=== PATIENT | male | born 1970 | race Caucasian/White ===

== ENCOUNTER 2023-04-25 00:48 | Inpatient (IN) ==
[2023-04-25] MEDS ORDERED: ONDANSETRON INJ 2 MG/ML 2 ML VIAL IV STA (01:44)
[2023-04-25] MEDS ORDERED: HYDROmorphone INJ 1 MG/ML SYRINGE IV STA (01:44)
[2023-04-25 02:09] LABS: Basophils # (auto) 0.09 K/uL (0.00-0.20); Basophils % (auto) 0.6 %; Eosinophils # (auto) 0.18 K/uL (0.00-0.50); Eosinophils % (auto) 1.2 %; Hematocrit (blood only) 46.3 % (42.0-52.0); Hemoglobin 15.7 g/dl (14.0-18.0); Immature Granulocytes # (auto) 0.07 K/uL (0.01-0.20); Immature Granulocytes % (auto) 0.5 %; Lymphocytes # (auto) 1.72 K/uL (1.20-3.40); Lymphocytes % (auto) 11.4 %; Mean Corpuscular Hemoglobin 29.7 pg (25.0-34.0); Mean Corpuscular Hgb Conc 33.9 g/dL (32.0-36.0); Mean Corpuscular Volume 87.7 fL (80.0-100.0); Mean Platelet Volume 9.5 fL (9.4-12.4); Monocytes # (auto) 1.28 K/uL (0.11-0.59); Monocytes % (auto) 8.5 %; Neutrophils % (auto) 77.8 %; Platelet Count 362 K/uL (130-400); RDW Coefficient of Variation 12.6 % (11.5-14.5); RDW Standard Deviation 40.7 fL (36.4-46.3); Red Blood Count 5.28 M/uL (4.70-6.10); White Blood Count 15.04 K/ul (4.8-10.8)
[2023-04-25 02:23] LABS: Albumin Globulin Ratio 1.4 (0.9-2); Albumin Level 4.2 gm/dl (3.4-5.0); Bilirubin,Total 0.5 mg/dl (0.2-1.0); Calcium 9.5 mg/dl (8.6-10.3); Est GFR (African American) 99.8 ml/min; Est GFR (Non-African American) 86.2 ml/min; Globulin 3.1 gm/dl (2.5-4.0); Potassium 4.1 mmol/L (3.5-5.1); Total Protein 7.3 gm/dl (6.0-8.3)
[2023-04-25] MEDS ORDERED: OPTIRAY 320 125ml IV ONE (02:48)
[2023-04-25] MEDS ORDERED: SODIUM CHLORIDE 0.9% 500 ML IV ONE (02:59)
--- NOTE | 2023-04-25 03:32 | CT Scan Report ---
Exam(s): CTA CHEST IV Amt: 118 ml opti 320 EXAM: CT Angiography Chest With Intravenous Contrast CLINICAL HISTORY: Reason for exam: Dyspnea. TECHNIQUE: Axial computed tomographic angiography images of the chest with intravenous contrast. Automated exposure control was utilized for the study. A dose lowering technique was utilized adhering to the principles of ALARA. MIP reconstructed images were created and reviewed. COMPARISON: No relevant prior studies available. FINDINGS: Pulmonary arteries: Acute pulmonary emboli in the left segmental and segmental branches as well as right subsegmental branches. Positive for right heart strain. Aorta: No acute findings. No thoracic aortic aneurysm. Lungs: Unremarkable. No mass. No consolidation. Pleural space: Unremarkable. No significant effusion. No pneumothorax. Heart: Cardiomegaly. No significant pericardial effusion. No evidence of RV dysfunction. Bones/joints: Degenerative changes of the spine. No acute fracture. No dislocation. Soft tissues: Unremarkable. Lymph nodes: Unremarkable. No enlarged lymph nodes. IMPRESSION: Acute pulmonary emboli in the left segmental and segmental branches as well as right subsegmental branches. Positive for right heart strain. Communications: Call Doctor Other Electronically signed by: Rafael Florez MD 04/25/23 03:31 AM
[2023-04-25] MEDS ORDERED: Heparin IV Adult Wt-Based Standard w/ INITIAL Bolus Protocol IV STA (03:59)
[2023-04-25] MEDS ORDERED: HEPARIN SOD (PORCINE) 1000 UNIT/ML IV ONE ×2 (04:14→04:30)
[2023-04-25] MEDS ORDERED: HEPARIN SODIUM/DEXTROSE 25,000 UNITS/500 ML BAG IV SCH (04:15)
[2023-04-25 04:19] LABS: INR 0.9 (0.9-1.1); Prothrombin Time 10.3 Seconds (9.0-12.0)
[2023-04-25 04:26] LABS: Appearance Urine Clear (Clear); Bacteria Urine Automated Negative (Negative); Bilirubin Urine Negative (Negative); Blood Urine Trace (Negative); Cast Urine Automated 0 /lpf (0-5); Color Urine Yellow; Epithelial Cell Urine Auto 0-5 /lpf (0-5); Glucose Urine UA Negative (Negative); Ketones Urine Negative (Negative); Leukocyte Esterase Urine Negative (Negative); Nitrite Urine Negative (Negative); Protein Urine Negative (Negative); RBC Urine Automated 0-4 /hpf (0-4); Specific Gravity Urine > 1.045 (1.000-1.030); Urobilinogen Urine Negative (Negative); pH Urine 5.5 (4.5-7.5)
[2023-04-25 05:10] LABS: Troponin I High Sensitivity 3.2 pg/ml (0-20)
--- NOTE | 2023-04-25 05:17 | Emergency Department Note ---
Impression & Plan Bilateral pulmonary embolism Admit to the [facility] ED Provider Note NAME: CASSIE JENSEN III AGE: 52 SEX: Male INFORMANT: Patient ED PROVIDER(S): Nhi Wright DO CHIEF COMPLAINT: Right-sided mid back pain PLAN: Disposition: Admit to the [facility] MEDICAL DECISION MAKING: This is a 52-year-old male patient presents to the emergency department with right-sided mid back pain since last night. Patient has been wearing a left- sided knee immobilizer after having knee surgery just 10 days ago. He states that the recovery from the surgery has been going well until yesterday when he developed the severe right upper mid back pain/rib pain. Laboratory studies revealed a mild leukocytosis with a white count of 15. H&H were stable. BUN was 27 and creatinine was 1. Patient was medicated with Dilaudid and Zofran. I was concerned for the possibility of PE and the patient went for CT angiogram of the chest which confirmed bilateral PE with right heart strain. Patient was bolused with IV heparin and started on an IV heparin drip. Care/management discussed with: Stat rad radiologist; [facility] Triage Nursing notes: Reviewed and agree with them. Vital Signs: reviewed and unremarkable Additional History obtained from: None Differential Diagnosis: Mid back strain; pulmonary embolism; pneumonia; pneumothorax Diagnostics, independently interpreted by me: ECG: Normal sinus rhythm at a rate of [address] segment elevation or signs of ischemia. There is no ectopy. Cardiac Monitoring: Normal sinus rhythm at a rate of 80 Imaging studies: CT scan of the chest: As per stat rad HPI: 52 year old Male arrives for evaluation of.. PAST MEDICAL HISTORY: See Below, PAST SURGICAL HISTORY: See Below, SOCIAL HISTORY: See Below, HOME MEDICATIONS: See list ALLERGIES: None VITALS: See Below PHYSICAL EXAMINATION: HEENT: Head - normocephalic and atraumatic Pupils are equal, round, and reactive to light. Extraocular eye muscles are intact, and sclera are anicteric. Nose - moist nasal mucosa without discharge. Mouth - moist buccal mucosa. Oropharynx is nonerythematous and there is no tonsillar exudate or edema noted. Neck: Supple; no cervical lymphadenopathy. Heart: Regular rate and rhythm. There is a normal S1 and S2 with no murmurs, clicks, or gallops appreciated. Lungs: Clear to auscultation bilaterally with no wheezes, rales, or rhonchi. Abdomen: Soft, completely nontender, nondistended, with good bowel sounds. There are no palpable pulsatile masses or hepatosplenomegaly. There is no guarding, rigidity, or rebound noted. Extremities: No evidence of cyanosis, clubbing, or edema. There are easily palpable peripheral pulses. Patient had a orthopedic brace on the left leg status post surgery and a neoprene brace on the right knee. Skin: warm and dry with good turgor and no rashes. Emergency department treatment: gastroenterologist, IV Dilaudid, IV Zofran, IV normal saline bolus, IV heparin bolus, IV heparin drip Emergency department course: The patient was evaluated in room C7. A complete history and physical was performed. A twelve-lead EKG was obtained as described above. An order was placed for continuous cardiac monitoring. The patient was in a normal sinus rhythm at a rate of 80. Patient was given a dose of IV Dilaudid and IV Zofran for the pain in his right mid back. He was bolused with 500 cc of saline. He went for CT scan of the chest to rule out the possibility of PE. Upon returning from radiology, reviewed the results of the laboratory studies with the patient as well as the result of the CT scan. Nursing staff heme tested the patient's stools and this was negative. Coagulation studies were drawn. The patient was bolused with IV heparin and started on heparin drip. CRITICAL CARE: I have personally spent greater than 30 minutes of critical care time in the direct management of this patient. This includes bedside care, interpretation of diagnostic studies, and testing, discussion with consultants, patient, and family members, and other required patient management activities. This 30 minutes is in excess of all separately billable procedures. Past Med/Surg History Medical History (Updated 04/25/23 @ 05:16 by Nhi Wright DO) Anxiety Vitamin D deficiency Ocular migraine Osteoarthritis Right knee pain Surgical History (Updated 03/04/18 @ 00:01 by Ochoa Verde) History of tonsillectomy Family History (Updated 02/28/18 @ 20:16 by Lindsay Robb PA-C) Mother , in house fire, smoke inhalation No problems noted. 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 Other Information That Helps Us Care for You: No Feels Safe at Home: Yes Assistive Devices: None Allergies Allergies Allergy/AdvReac Type Severity Reaction Status Date / Time No Known Allergies Allergy Verified 04/25/23 01:30 Home Meds Home Medications Medication Instructions Recorded Confirmed diflunisal 500 mg tablet 500 mg PO BID PRN Pain 02/28/18 04/25/23 acetaminophen 500 mg tablet 1,000 mg PO DIRECTED PRN Pain 04/25/23 04/25/23 (Tylenol Extra Strength) duloxetine 30 mg capsule,delayed 30 mg PO DAILY 04/25/23 04/25/23 release metoprolol succinate 25 mg 12.5 mg PO DIRECTED 04/25/23 04/25/23 tablet,extended release 24 hr tramadol 50 mg tablet 50 mg PO Q6H PRN Pain 04/25/23 04/25/23 Previous Rx's Medication Instructions Recorded apixaban 5 mg tablet (Eliquis) 5 mg PO BID #74 tabs 04/26/23 Results & Data (ED) Vital Signs Vital Signs - 24 hr 04/25/23 00:52 04/25/23 01:30 04/25/23 01:32 Temperature 37.3 C Temperature Source Temporal Artery Scan Pulse Rate 105 H 86 92 H Pulse Rate [Apical] Respiratory Rate 16 16 Respiratory Effort / Characteristics Respiratory Depth Respiratory Pattern Blood Pressure 122/86 131/88 Blood Pressure [Left Arm] Blood Pressure Mean 98 102 Blood Pressure Mean [Left Arm] Pulse Oximetry 96 95 Oxygen Delivery Method Room Air Room Air Sepsis Recent Fever Within 48 Hours No Sepsis New/Unexplained Change in Mental Status No Sepsis Action Taken by Nursing No Action Required 04/25/23 01:44 04/25/23 03:30 04/25/23 04:00 Temperature Temperature Source Pulse Rate Pulse Rate [Apical] 81 72 Respiratory Rate 16 18 Respiratory Effort / Characteristics Non-Labored Spontaneous Respiratory Depth Normal Respiratory Pattern Regular Blood Pressure Blood Pressure [Left Arm] 105/60 123/72 Blood Pressure Mean Blood Pressure Mean [Left Arm] 75 89 Pulse Oximetry 94 97 98 Oxygen Delivery Method Room Air Room Air Room Air Sepsis Recent Fever Within 48 Hours Sepsis New/Unexplained Change in Mental Status Sepsis Action Taken by Nursing Laboratory Data 04/26/23 07:52 04/25/23 08:24 Lab Results 04/25/23 04/25/23 04/25/23 Range/Units 01:10 03:55 04:46 WBC 15.04 H (4.8-10.8) K/ul RBC 5.28 (4.70-6.10) M/uL Hgb 15.7 (14.0-18.0) g/dl Hct 46.3 (42.0-52.0) % MCV 87.7 (80.0-100.0) fL MCH 29.7 (25.0-34.0) pg MCHC 33.9 (32.0-36.0) g/dL RDW Std Deviation 40.7 (36.4-46.3) fL RDW Coeff of Richa 12.6 (11.5-14.5) % Plt Count 362 (130-400) K/uL MPV 9.5 (9.4-12.4) fL Immature Gran % (Auto) 0.5 % Neut % (Auto) 77.8 % Lymph % (Auto) 11.4 % Green % (Auto) 8.5 % Eos % (Auto) 1.2 % Baso % (Auto) 0.6 % Neut # (Auto) 11.70 H (1.40-6.50) K/uL Lymph # (Auto) 1.72 (1.20-3.40) K/uL [place] # (Auto) 1.28 H (0.11-0.59) K/uL Eos # (Auto) 0.18 (0.00-0.50) K/uL Baso # (Auto) 0.09 (0.00-0.20) K/uL Immature Gran # (Auto) 0.07 (0.01-0.20) K/uL PT 10.3 (9.0-12.0) Seconds INR 0.9 (0.9-1.1) Sodium 137 (136-145) mmol/L Potassium 4.1 (3.5-5.1) mmol/L Chloride 103 (98-107) mmol/L Carbon Dioxide 24 (21-32) mmol/L Anion Gap 10 (3-11) BUN 27 H (6-23) mg/dl Creatinine 1.00 (0.6-1.4) mg/dl Est Cr Clr Drug Dosing 105.0 ml/min Est GFR ( Amer) 99.8 ml/min Est GFR (Non-Af Amer) 86.2 ml/min BUN/Creatinine Ratio 27.0 H (10-20) Glucose 77 (70-99(Fasting)) mg/dl Calcium 9.5 (8.6-10.3) mg/dl Total Bilirubin 0.5 (0.2-1.0) mg/dl AST 18 (13-39) U/L ALT 18 (7-52) U/L Alkaline Phosphatase 61 (34-104) U/L Troponin I High Sens 3.2 (0-20) pg/ml Total Protein 7.3 (6.0-8.3) gm/dl Albumin 4.2 (3.4-5.0) gm/dl Globulin 3.1 (2.5-4.0) gm/dl Albumin/Globulin Ratio 1.4 (0.9-2) Urine Color Yellow Urine Appearance Clear (Clear) Urine pH 5.5 (4.5-7.5) Ur Specific [place] > 1.045 H (1.000-1.030) Urine Protein Negative (Negative) Urine Glucose (UA) Negative (Negative) Urine Ketones Negative (Negative) Urine Blood Trace H (Negative) Urine Nitrite Negative (Negative) Urine Bilirubin Negative (Negative) Urine Urobilinogen Negative (Negative) Ur Leukocyte Esterase Negative (Negative) Urine WBC (Auto) 1-5 (0-5) /hpf Urine RBC (Auto) 0-4 (0-4) /hpf U Hyaline Cast (Auto) 0 (0-5) /lpf U Epithel Cells (Auto) 0-5 (0-5) /lpf Urine Bacteria (Auto) Negative (Negative) SARS-CoV-2 (PCR) NEGATIVE (Negative) Administered Medications Acetaminophen (Acetaminophen 325 Mg Tab) 650 mg PO Q4H PRN PRN Reason: Pain or Fever Stop: 05/25/23 08:18 Last Admin: 04/25/23 21:46 Dose: 650 mg Documented By: ALTON Duloxetine HCl (Duloxetine Hcl 30 Mg Cap) 30 mg PO DAILY ISREAL Stop: 05/25/23 08:59 Last Admin: 04/25/23 09:43 Dose: 30 mg Documented By: DELBERT Enoxaparin Sodium (Enoxaparin 100 Mg/1ml Syr) 100 mg SC Q12H ISREAL Stop: 05/25/23 10:14 Last Admin: 04/25/23 21:49 Dose: 100 mg Documented By: Admin: 04/25/23 11:01 Dose: 100 mg Documented By: DELBERT Tizanidine HCl (Tizanidine Hcl 4 Mg Tablet) 2 mg PO TID PRN PRN Reason: back spasm Stop: 05/25/23 13:59 Last Admin: 04/25/23 21:11 Dose: 2 mg Documented By: Admin: 04/25/23 12:44 Dose: 2 mg Documented By: DELBERT Tramadol HCl (Tramadol Hcl 50 Mg Tablet) 50 mg PO Q6H PRN PRN Reason: Pain Stop: 05/25/23 08:18 Last Admin: 04/25/23 18:12 Dose: 50 mg Documented By: Admin: 04/25/23 09:02 Dose: 50 mg Documented By: EDLBERT Discontinued Medications Heparin Sodium (Porcine) (Heparin Sod (Porcine) 1000 Unit/Ml) 7,000 units IV NOW ONE Stop: 04/25/23 04:31 Last Admin: 04/25/23 04:32 Dose: 5,000 units Documented By: KENY Co-signed By: ALTAF Heparin Sodium/Dextrose (Heparin Iv Adult Wt-Based Standard W/ Initial Bolus Protocol) 1 each IV NOW STA; Protocol Stop: 04/25/23 04:00 Last Admin: 04/25/23 04:33 Dose: 1 each Documented By: KENY Hydromorphone HCl (Hydromorphone Inj 1 Mg/Ml Syringe) 1 mg IV NOW STA Stop: 04/25/23 01:45 Last Admin: 04/25/23 01:51 Dose: 1 mg Documented By: TIFFANY Sodium Chloride (Nss) 500 mls @ 999 mls/hr IV .Q31M ONE Stop: 04/25/23 03:29 Last Infusion: 04/25/23 03:53 Dose: Infused Documented By: Admin: 04/25/23 03:15 Dose: 999 mls/hr Documented By: KENY Heparin Sodium/Dextrose (Heparin Sodium/Dextrose) 25,000 units in 500 mls @ 31 mls/hr IV .Q16H8M [facility]; Protocol Stop: 05/25/23 04:14 Last Titration: 04/25/23 11:08 Dose: Infused Documented By: DELBERT Co-signed By: TONYA Admin: 04/25/23 04:32 Dose: 1,550 units/hr, 31 mls/hr Documented By: KENY Co-signed By: ALTAF Ioversol (Optiray 320 125ml) 118 ml IV ONCE ONE Stop: 04/25/23 02:49 Last Admin: 04/25/23 02:49 Dose: 118 ml Documented By: JAMA Ondansetron HCl (Ondansetron Inj 2 Mg/Ml 2 Ml Vial) 4 mg IV NOW STA Stop: 04/25/23 01:45 Last Admin: 04/25/23 01:53 Dose: 4 mg Documented By: TIFFANY Imaging Data Radiologist's Impression: Chest CTA 04/25/23 01:44 CR Exam(s): CTA CHEST IV Amt: 118 ml opti 320 EXAM: CT Angiography Chest With Intravenous Contrast CLINICAL HISTORY: Reason for exam: Dyspnea. TECHNIQUE: Axial computed tomographic angiography images of the chest with intravenous contrast. Automated exposure control was utilized for the study. A dose lowering technique was utilized adhering to the principles of ALARA. MIP reconstructed images were created and reviewed. COMPARISON: No relevant prior studies available. FINDINGS: Pulmonary arteries: Acute pulmonary emboli in the left segmental and segmental branches as well as right subsegmental branches. Positive for right heart strain. Aorta: No acute findings. No thoracic aortic aneurysm. Lungs: Unremarkable. No mass. No consolidation. Pleural space: Unremarkable. No significant effusion. No pneumothorax. Heart: Cardiomegaly. No significant pericardial effusion. No evidence of RV dysfunction. Bones/joints: Degenerative changes of the spine. No acute fracture. No dislocation. Soft tissues: Unremarkable. Lymph nodes: Unremarkable. No enlarged lymph nodes. IMPRESSION: Acute pulmonary emboli in the left segmental and segmental branches as well as right subsegmental branches. Positive for right heart strain. Communications: Call Doctor Other Electronically signed by: Rafael Florez MD 04/25/23 03:31 AM Discharge Plan Visit Data Chief Complaint: Back Injury/Pain ED Provider: Nhi Wright Discharge Problem: Bilateral pulmonary embolism Patient Disposition: Admitted As Inpatient Discharge Instructions Interventions: ED Discharge Assessment Last Done: 04/25/23 07:48
--- NOTE | 2023-04-25 06:56 | Electrocardiogram Report ---
Test Reason : Blood Pressure : / mmHG Vent. Rate : 083 BPM Atrial Rate : 083 BPM P-R Int : 130 ms QRS Dur : 082 ms QT Int : 358 ms P-R-T Axes : 039 -01 025 degrees QTc Int : 420 ms Normal sinus rhythm Normal ECG When compared with ECG of 02-MAR-2018 06:35, Vent. rate has increased BY 29 BPM Nonspecific T wave abnormality now evident in Inferior leads Confirmed by Sony Baxter ([id number]) on 04/25/2023 6:56:06 AM Referred By: REFERRED SELF Confirmed By:Sony Baxter
[2023-04-25] MEDS ORDERED: ACETAMINOPHEN 325 MG TAB PO PRN (08:19)
[2023-04-25] MEDS ORDERED: NITROGLYCERIN SL 0.4 MG/TAB TAB SL PRN (08:19)
--- NOTE | 2023-04-25 08:33 | History & Physical Report ---
Date of Service April 25, 2023 Assessment & Plan (1) Bilateral pulmonary embolism: Plan: 52-year-old male with past med history significant for depression who recently about 10 days ago had left knee ligament repair and ambulating with the crutches comes because of sharp pain in the upper back region and found to have bilateral pulmonary embolism. Bilateral pulmonary embolism Segmental and subsegmental branches Positive for right heart strain started IV heparin Will follow serial cardiac enzymes and echo Based on echo findings can consult cardiology Close monitor. Depression On duloxetine DVT prophylaxis IV heparin Disposition telemetry Full code History of Present Illness Chief Complaint: Pulmonary embolism Primary Care Provider: Lawrence De La Torre 52-year-old male with past med significant for depression who recently about 10 days ago had left knee ligament repair and ambulating with the crutches comes because of sharp pain in the upper back region and found to have bilateral pulmonary embolism. When the pain was severe he felt short of breath and nauseous. No fevers. No cough. No abdominal pain. Normal bowel and bladder movements. No headache. Current resting comfortably and hemodynamically stable. Past medical history. As mentioned above Past surgical history. Left knee surgery Family history. Father atrial fibrillation CHF prostate cancer Social history. Former. No smoking. No alcohol use. No drug use. Allergies Allergy/AdvReac Type Severity Reaction Status Date / Time No Known Allergies Allergy Verified 04/25/23 01:30 Home Medications Medication Instructions Recorded Confirmed Type diflunisal 500 mg tablet 500 mg PO BID PRN Pain 02/28/18 04/25/23 History acetaminophen 500 mg tablet 1,000 mg PO DIRECTED PRN Pain 04/25/23 04/25/23 History (Tylenol Extra Strength) duloxetine 30 mg capsule,delayed 30 mg PO DAILY 04/25/23 04/25/23 History release metoprolol succinate 25 mg 12.5 mg PO DIRECTED 04/25/23 04/25/23 History tablet,extended release 24 hr tramadol 50 mg tablet 50 mg PO Q6H PRN Pain 04/25/23 04/25/23 History Past Med/Surg History Medical History (Updated 04/25/23 @ 05:16 by Nhi Wright DO) Anxiety Vitamin D deficiency Ocular migraine Osteoarthritis Right knee pain Surgical History (Updated 03/04/18 @ 00:01 by Ochoa Verde) History of tonsillectomy Family History (Updated 02/28/18 @ 20:16 by Lindsay Robb PA-C) Mother , in house fire, smoke inhalation No problems noted. 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 ENT- oropharynx clear Neck- supple, no JVD. Lungs- clear to auscultation no wheezing or crackles. Heart- regular rhythm; no murmur, no gallop. Abdomen- normal bowel sounds, soft, nontender, no distension. Extremities- no pretibial edema, no erythema seen. Neuro- alert, oriented x 3; PERRL, no facial palsy; no dysarthria; moves extremities. Skin- warm & dry Results & Data Results & Data Vital Signs (Past 12 Hours) Vital Signs Temp Pulse Pulse Resp BP BP Pulse Ox 04/25/23 06:30 66 13 98/68 L 96 04/25/23 06:16 63 16 99/68 L 97 04/25/23 06:00 64 17 97 04/25/23 05:40 69 20 117/68 97 04/25/23 05:28 89 04/25/23 04:00 72 18 123/72 98 04/25/23 03:30 81 16 105/60 97 04/25/23 01:44 94 04/25/23 01:32 92 H 04/25/23 01:30 86 16 131/88 95 04/25/23 00:52 37.3 C 105 H 16 122/86 96 O2 Del Method 04/25/23 06:30 Room Air 04/25/23 06:16 Room Air 04/25/23 06:00 Room Air 04/25/23 05:40 Room Air 04/25/23 05:28 04/25/23 04:00 Room Air 04/25/23 03:30 Room Air 04/25/23 01:44 Room Air 04/25/23 01:32 04/25/23 01:30 Room Air 04/25/23 00:52 Room Air Diagnostic Findings Laboratory Results WBC 15.04 K/ul (4.8-10.8) H 04/25/23 01:10 RBC 5.28 M/uL (4.70-6.10) 04/25/23 01:10 Hgb 15.7 g/dl (14.0-18.0) 04/25/23 01:10 Hct 46.3 % (42.0-52.0) 04/25/23 01:10 MCV 87.7 fL (80.0-100.0) 04/25/23 01:10 MCH 29.7 pg (25.0-34.0) 04/25/23 01:10 MCHC 33.9 g/dL (32.0-36.0) 04/25/23 01:10 RDW Std Deviation 40.7 fL (36.4-46.3) 04/25/23 01:10 RDW Coeff of Richa 12.6 % (11.5-14.5) 04/25/23 01:10 Plt Count 362 K/uL (130-400) 04/25/23 01:10 MPV 9.5 fL (9.4-12.4) 04/25/23 01:10 Immature Gran % (Auto) 0.5 % 04/25/23 01:10 Neut % (Auto) 77.8 % 04/25/23 01:10 Lymph % (Auto) 11.4 % 04/25/23 01:10 [place] % (Auto) 8.5 % 04/25/23 01:10 Eos % (Auto) 1.2 % 04/25/23 01:10 Baso % (Auto) 0.6 % 04/25/23 01:10 Neut # (Auto) 11.70 K/uL (1.40-6.50) H 04/25/23 01:10 Lymph # (Auto) 1.72 K/uL (1.20-3.40) 04/25/23 01:10 [place] # (Auto) 1.28 K/uL (0.11-0.59) H 04/25/23 01:10 Eos # (Auto) 0.18 K/uL (0.00-0.50) 04/25/23 01:10 Baso # (Auto) 0.09 K/uL (0.00-0.20) 04/25/23 01:10 Immature Gran # (Auto) 0.07 K/uL (0.01-0.20) 04/25/23 01:10 PT 10.3 Seconds (9.0-12.0) 04/25/23 01:10 INR 0.9 (0.9-1.1) 04/25/23 01:10 Sodium 137 mmol/L (136-145) 04/25/23 01:10 Potassium 4.1 mmol/L (3.5-5.1) 04/25/23 01:10 Chloride 103 mmol/L (98-107) 04/25/23 01:10 Carbon Dioxide 24 mmol/L (21-32) 04/25/23 01:10 Anion Gap 10 (3-11) 04/25/23 01:10 BUN 27 mg/dl (6-23) H 04/25/23 01:10 Creatinine 1.00 mg/dl (0.6-1.4) 04/25/23 01:10 Est Cr Clr Drug Dosing 105.0 ml/min 04/25/23 01:10 Est GFR ( Amer) 99.8 ml/min 04/25/23 01:10 Est GFR (Non-Af Amer) 86.2 ml/min 04/25/23 01:10 BUN/Creatinine Ratio 27.0 (10-20) H 04/25/23 01:10 Glucose 77 mg/dl (70-99(Fasting)) 04/25/23 01:10 Calcium 9.5 mg/dl (8.6-10.3) 04/25/23 01:10 Total Bilirubin 0.5 mg/dl (0.2-1.0) 04/25/23 01:10 AST 18 U/L (13-39) 04/25/23 01:10 ALT 18 U/L (7-52) 04/25/23 01:10 Alkaline Phosphatase 61 U/L (34-104) 04/25/23 01:10 Troponin I High Sens 3.2 pg/ml (0-20) 04/25/23 01:10 Total Protein 7.3 gm/dl (6.0-8.3) 04/25/23 01:10 Albumin 4.2 gm/dl (3.4-5.0) 04/25/23 01:10 Globulin 3.1 gm/dl (2.5-4.0) 04/25/23 01:10 Albumin/Globulin Ratio 1.4 (0.9-2) 04/25/23 01:10 Urine Color Yellow 04/25/23 03:55 Urine Appearance Clear (Clear) 04/25/23 03:55 Urine pH 5.5 (4.5-7.5) 04/25/23 03:55 Ur Specific [place] > 1.045 (1.000-1.030) H 04/25/23 03:55 Urine Protein Negative (Negative) 04/25/23 03:55 Urine Glucose (UA) Negative (Negative) 04/25/23 03:55 Urine Ketones Negative (Negative) 04/25/23 03:55 Urine Blood Trace (Negative) H 04/25/23 03:55 Urine Nitrite Negative (Negative) 04/25/23 03:55 Urine Bilirubin Negative (Negative) 04/25/23 03:55 Urine Urobilinogen Negative (Negative) 04/25/23 03:55 Ur Leukocyte Esterase Negative (Negative) 04/25/23 03:55 Urine WBC (Auto) 1-5 /hpf (0-5) 04/25/23 03:55 Urine RBC (Auto) 0-4 /hpf (0-4) 04/25/23 03:55 U Hyaline Cast (Auto) 0 /lpf (0-5) 04/25/23 03:55 U Epithel Cells (Auto) 0-5 /lpf (0-5) 04/25/23 03:55 Urine Bacteria (Auto) Negative (Negative) 04/25/23 03:55 SARS-CoV-2 (PCR) NEGATIVE (Negative) 04/25/23 04:46 Impressions Chest CTA 04/25/23 01:44 CR Exam(s): CTA CHEST IV Amt: 118 ml opti 320 EXAM: CT Angiography Chest With Intravenous Contrast CLINICAL HISTORY: Reason for exam: Dyspnea. TECHNIQUE: Axial computed tomographic angiography images of the chest with intravenous contrast. Automated exposure control was utilized for the study. A dose lowering technique was utilized adhering to the principles of ALARA. MIP reconstructed images were created and reviewed. COMPARISON: No relevant prior studies available. FINDINGS: Pulmonary arteries: Acute pulmonary emboli in the left segmental and segmental branches as well as right subsegmental branches. Positive for right heart strain. Aorta: No acute findings. No thoracic aortic aneurysm. Lungs: Unremarkable. No mass. No consolidation. Pleural space: Unremarkable. No significant effusion. No pneumothorax. Heart: Cardiomegaly. No significant pericardial effusion. No evidence of RV dysfunction. Bones/joints: Degenerative changes of the spine. No acute fracture. No dislocation. Soft tissues: Unremarkable. Lymph nodes: Unremarkable. No enlarged lymph nodes. IMPRESSION: Acute pulmonary emboli in the left segmental and segmental branches as well as right subsegmental branches. Positive for right heart strain. Communications: Call Doctor Other Electronically signed by: Rafael Florez MD 04/25/23 03:31 AM ECG Additional Comments: ECG. Normal sinus rhythm rate of 83. Nonspecific ST abnormalities. Code Status & VTE Plan VTE Prophylaxis Plan VTE Prophylaxis will be ordered: Yes
[2023-04-25] MEDS: traMADol HCL 50 MG TABLET PO PRN ×2 (09:02→18:12)
[2023-04-25 09:14] LABS: Basophils # (auto) 0.09 K/uL (0.00-0.20); Basophils % (auto) 0.7 %; Eosinophils # (auto) 0.06 K/uL (0.00-0.50); Eosinophils % (auto) 0.4 %; Hematocrit (blood only) 45.2 % (42.0-52.0); Hemoglobin 14.8 g/dl (14.0-18.0); Immature Granulocytes # (auto) 0.06 K/uL (0.01-0.20); Immature Granulocytes % (auto) 0.4 %; Lymphocytes # (auto) 1.86 K/uL (1.20-3.40); Lymphocytes % (auto) 13.7 %; Mean Corpuscular Hemoglobin 29.1 pg (25.0-34.0); Mean Corpuscular Hgb Conc 32.7 g/dL (32.0-36.0); Mean Platelet Volume 9.6 fL (9.4-12.4); Monocytes # (auto) 1.09 K/uL (0.11-0.59); Neutrophils # (auto) 10.43 K/uL (1.40-6.50); Neutrophils % (auto) 76.8 %; Platelet Count 292 K/uL (130-400); RDW Coefficient of Variation 12.5 % (11.5-14.5); RDW Standard Deviation 40.9 fL (36.4-46.3); Red Blood Count 5.08 M/uL (4.70-6.10); White Blood Count 13.59 K/ul (4.8-10.8)
[2023-04-25 09:19] LABS: BUN Creatinine Ratio 25.8 (10-20); Calcium 9.2 mg/dl (8.6-10.3); Creatinine Clr Calc Pharmacy 115.6 ml/min; Est GFR (African American) 113.9 ml/min; Est GFR (Non-African American) 98.3 ml/min; Potassium 4.4 mmol/L (3.5-5.1)
[2023-04-25 09:26] LABS: Troponin I High Sensitivity 2.5 pg/ml (0-20)
[2023-04-25] MEDS: DULoxetine HCL 30 MG CAP PO SCH (09:43)
[2023-04-25] MEDS ORDERED: MoRPHine SULFATE 2 MG/ML CARP IV PRN (10:07)
[2023-04-25] MEDS: ENOXAPARIN 100 MG/1ML SYR SC SCH ×2 (11:01→21:49)
--- NOTE | 2023-04-25 11:40 | Communication Note ---
Date of Service: April 25, 2023 Patient seen and examined at bedside. He reports back pain on right paraspinal muscles. Denies any shortness of breath or chest pain at rest. He is undergoing echocardiogram On physical examination; Constitutional: WD/WN, vitals as above, NAD, sitting up in bed, pleasant, conversing easily Respiratory: normal respiratory effort, lungs clear to auscultation, no wheeze, rales, rhonchi. Normal insp/exp effort, no accessory muscle use Cardiovascular: RRR, no murmur, no edema Vessels: no JVD or carotid bruit Chest: normal inspection of chest Abdomen: normal bowel sounds, soft, nontender, no hepatosplenomegaly Musculoskeletal: no cyanosis or clubbing, extremities motor strength 5/5. Tenderness on right paraspinal muscles Skin: no rashes, warm and dry normal turgor Neurologic: PERRL, EOMI, accommodation nl, no face palsy, no dysarthria CN's II- XI intact bilaterally and moves all extremities Psychiatric: A+Ox3, euthymic affect Assessment/plan Bilateral PE with right heart strain: Recent ACL repair surgery about 2 weeks ago (April 14) Reports long hours of driving as well. No screening colonoscopy yet Currently on Lovenox therapeutic dose. Plan to switch over to Eliquis. Will follow-up on echocardiogram. Venous duplex ordered to rule out DVT as well Back pain; Started on Zanaflex for back spasm. Pain control.
[2023-04-25] MEDS: tiZANidine HCL 4 MG TABLET PO PRN ×2 (12:44→21:11)
--- NOTE | 2023-04-25 13:44 | Ultrasound Report ---
US venous doppler LE BI CLINICAL HISTORY: Rule out DVT TECHNIQUE: Bilateral lower extremity real-time compression venous ultrasound with Color Doppler imagi ng. Utilizing real-time ultrasonic imaging multiple real time high-resolution ultrasonic images with compression and noncompression maneuvers of the deep venous system in addition to color doppler imagi ng were performed from the common femoral vein through the proximal calf veins. COMPARISON: None available at the time of this dictation. FINDINGS/IMPRESSION: Newly occlusive thrombus is seen in one of 2 posterior tibial veins extending from the proximal to mi d vein. Mcclain's cyst incidentally seen. ACT 112: Negative or not required by law. Electronically signed by: Pete Barclay M.D. 04/25/2023 1:42 PM
[2023-04-26 08:34] LABS: Basophils # (auto) 0.06 K/uL (0.00-0.20); Basophils % (auto) 0.6 %; Eosinophils # (auto) 0.11 K/uL (0.00-0.50); Eosinophils % (auto) 1.1 %; Hemoglobin 14.7 g/dl (14.0-18.0); Immature Granulocytes # (auto) 0.05 K/uL (0.01-0.20); Immature Granulocytes % (auto) 0.5 %; Lymphocytes # (auto) 1.43 K/uL (1.20-3.40); Lymphocytes % (auto) 13.7 %; Mean Corpuscular Hemoglobin 29.3 pg (25.0-34.0); Mean Corpuscular Hgb Conc 34.2 g/dL (32.0-36.0); Mean Corpuscular Volume 85.8 fL (80.0-100.0); Mean Platelet Volume 9.5 fL (9.4-12.4); Monocytes # (auto) 0.72 K/uL (0.11-0.59); Monocytes % (auto) 6.9 %; Neutrophils # (auto) 8.06 K/uL (1.40-6.50); Neutrophils % (auto) 77.2 %; Platelet Count 282 K/uL (130-400); RDW Coefficient of Variation 12.6 % (11.5-14.5); RDW Standard Deviation 39.3 fL (36.4-46.3); Red Blood Count 5.01 M/uL (4.70-6.10); White Blood Count 10.43 K/ul (4.8-10.8)
[2023-04-26 08:52] LABS: BUN Creatinine Ratio 20.8 (10-20); Calcium 9.2 mg/dl (8.6-10.3); Creatinine Clr Calc Pharmacy 133.7 ml/min; Est GFR (African American) 120.9 ml/min; Est GFR (Non-African American) 104.3 ml/min; Potassium 3.9 mmol/L (3.5-5.1)
[2023-04-26] MEDS: traMADol HCL 50 MG TABLET PO PRN (09:02)
[2023-04-26] MEDS: DULoxetine HCL 30 MG CAP PO SCH (09:18)
[2023-04-26] MEDS: ENOXAPARIN 100 MG/1ML SYR SC SCH ×2 (09:19→22:08)
[2023-04-26] MEDS ORDERED: MoRPHine SULFATE 2 MG/ML CARP IV PRN (10:07)
[2023-04-26] MEDS ORDERED: OPTIRAY 320 500ml IV ONE (11:14)
--- NOTE | 2023-04-26 11:32 | CT Scan Report ---
THORACIC SPINE CT WITH CONTRAST CLINICAL HISTORY: Severe back pain. COMPARISON STUDY: Chest CT April 25, 2023. TECHNIQUE: Axial images of the thoracic spine were obtained following intravenous injection of 90 cc of Optiray 320 IV. Sagittal and coronal reconstructions were viewed. Automated exposure control was u tilized for the study. A dose lowering technique was utilized adhering to the principles of ALARA. FINDINGS: Alignment of the thoracic spine is anatomic. There is mild loss of height of the superior e ndplate of T4. This is probably chronic. No acute fractures are present. There are multiple Schmorl's nodes within the thoracic spine. No suspicious osseous lesions are present. Mild multilevel endplate osteophytosis and facet arthrosis is present. Trace bilateral pleural effusions have developed since CT of April 25, 2023. Multiple bilateral pulmonary emboli are again noted. These are better depic madeleine on that exam. Right lower lobe groundglass opacity is noted. This favors a pulmonary infarct. IMPRESSION: 1. Mild loss of height of the superior endplate of T4. This favors an old mild compression fracture. No acute thoracic spine fractures. 2. Mild multilevel degenerative changes within the thoracic spine. 3. Multiple bilateral pulmonary emboli, as shown on chest CT of April 25, 2023. Interval developme nt of trace bilateral pleural effusions. Subpleural right lower lobe opacity favors a pulmonary infar ct which could potentially result in back pain. ACT 112: Negative or not required by law. Electronically signed by: Jax Lynch M.D. 04/26/2023 11:30 AM
[2023-04-26] MEDS: oxyCODONE HCL IR 5 MG TAB (IMMEDIATE RELEASE) PO PRN ×2 (13:03→17:57)
--- NOTE | 2023-04-26 13:52 | Hospitalist Progress Note ---
Date of Service April 26, 2023 Assessment & Plan (1) Bilateral pulmonary embolism: Plan: 52-year-old male with past med history significant for depression who recently about 10 days ago had left knee ligament repair and ambulating with the crutches comes because of sharp pain in the upper back region and found to have bilateral pulmonary embolism. Bilateral pulmonary embolism Left lower extremity DVT History of left knee ligament repair on April 14, 2023. Also report multiple long car rides. Presented with upper back pain. CTA chest personally reviewed; acute PE in the left segmental and right subsegmental and segmental branch. Lower extremity Doppler shows thrombus in one of the 2 posterior tibial veins extending to proximal to mid vein. Echocardiogram shows EF of 60 to 65%; no findings suggestive of pulmonary hyp ertension. EKG personally reviewed; sinus rhythm with no ST or T wave changes. Continue on Lovenox therapeutic dose. Prescription for Eliquis sent to [facility] pharmacy. Pharmacy does not have patient's insurance information. Discussed with patient to send over the insurance information. Also discussed with case management to provide coupon for patient. And to switch over to Eliquis at discharge with 7 days of 10 mg twice daily, then 5 mg twice daily. Will need anticoagulation for 3 to 6 months Also discussed regarding screening colonoscopy. CT thoracic spine was ordered due to severe back pain reported by the patient. Reported to have mild loss of height of superior endplate of T4 likely due to oral compression fracture. Patient is asymptomatic. Discussed the finding with patient. The back pain is likely due to pulmonary infarction of right lower lobe. Pain control with oxycodone, muscle relaxant and morphine. PT ordered. Depression On duloxetine DVT prophylaxis Lovenox Dispositionpossible discharge tomorrow a.m. if patient's pain is well- controlled. Patient continues to hospitalize due to bilateral PE and pulmonary infarction resulting in severe pain. Full code Discussed with daughter at bedside. Time spent evaluating patient, direct bedside care, chart review, placing orders, interpretation of diagnostic studies, discussion with consultants, patie nt, and family members, as well as other required patient management activities is 50 minutes. Please note the above document was generated using voice recognition software. It may contain grammatical, syntax or spelling errors. Any formal questions or concerns about the content, text or information contained within the body of this dictation should be directly addressed to the provider for clarification Admission and Anticipated Discharge Date Admission Date: April 25, 2023 Subjective Patient seen and examined at bedside. He reports back pain on right thoracic paraspinal muscle. Denies shortness of breath. No chest pain Review of Systems Review of Systems: All systems reviewed & are unremarkable except as noted in Subjective Physical Exam Physical Exam: Constitutional: WD/WN, vitals as above, NAD, sitting up in bed, pleasant, conversing easily Respiratory: Bilateral vesicular breath sound. Cardiovascular: RRR, no murmur, no edema Vessels: no JVD or carotid bruit Chest: normal inspection of chest Abdomen: normal bowel sounds, soft, nontender, no hepatosplenomegaly Musculoskeletal: Tenderness present in thoracic paraspinal muscle Skin: no rashes, warm and dry normal turgor Neurologic: Grossly intact Psychiatric: A+Ox3, euthymic affect Results & Data Results & Data Vital Signs (Past 12 Hours) Vital Signs Temp Pulse Pulse Resp BP Pulse Ox O2 Del Method 04/26/23 11:04 37.1 C 80 18 123/76 95 Room Air 04/26/23 08:19 64 04/26/23 07:38 37.1 C 72 18 123/77 97 Room Air 04/26/23 04:01 37.1 C 60 18 109/71 95 Room Air
--- NOTE | 2023-04-26 14:25 | Electrocardiogram Report ---
Test Reason : Blood Pressure : / mmHG Vent. Rate : 083 BPM Atrial Rate : 083 BPM P-R Int : 128 ms QRS Dur : 092 ms QT Int : 360 ms P-R-T Axes : 056 019 044 degrees QTc Int : 423 ms Normal sinus rhythm Normal ECG When compared with ECG of 25-APR-2023 02:00, No significant change was found Confirmed by Jerson Mota ([id number]) on 04/26/2023 2:25:23 PM Referred By: REFERRED SELF Confirmed By:Williams Mota
[2023-04-26] MEDS: tiZANidine HCL 4 MG TABLET PO SCH ×2 (15:21→20:29)
[2023-04-27] MEDS: oxyCODONE HCL IR 5 MG TAB (IMMEDIATE RELEASE) PO PRN ×2 (08:02→13:34)
[2023-04-27 08:44] LABS: Calcium 9.5 mg/dl (8.6-10.3); Creatinine Clr Calc Pharmacy 115.6 ml/min; Est GFR (African American) 113.9 ml/min; Est GFR (Non-African American) 98.3 ml/min
[2023-04-27] MEDS: ENOXAPARIN 100 MG/1ML SYR SC SCH (08:47)
[2023-04-27] MEDS: DULoxetine HCL 30 MG CAP PO SCH (08:48)
[2023-04-27] MEDS: tiZANidine HCL 4 MG TABLET PO SCH ×2 (08:48→13:35)
--- NOTE | 2023-04-27 11:57 | Discharge Summary ---
Discharge Summary Date of Service April 27, 2023 Notes For Next Care Provider Please ensure Eliquis treatment of 3-6 months Medication Changes From Visit Eliquis starter pack oxycodone 5mg q6h prn tizanidine 2mg TID PRN Admission HPI Per Admitting Provider 52-year-old male with past med significant for depression who recently about 10 days ago had left knee ligament repair and ambulating with the crutches comes because of sharp pain in the upper back region and found to have bilateral pulmonary embolism. When the pain was severe he felt short of breath and nauseous. No fevers. No cough. No abdominal pain. Normal bowel and bladder movements. No headache. Current resting comfortably and hemodynamically stable. Past medical history. As mentioned above Past surgical history. Left knee surgery Family history. Father atrial fibrillation CHF prostate cancer Social history. Former. No smoking. No alcohol use. No drug use. Admission Exam Per Admitting Provider General- Not in distress Head- atraumatic Eyes- PERRL. ENT- oropharynx clear Neck- supple, no JVD. Lungs- clear to auscultation no wheezing or crackles. Heart- regular rhythm; no murmur, no gallop. Abdomen- normal bowel sounds, soft, nontender, no distension. Extremities- no pretibial edema, no erythema seen. Neuro- alert, oriented x 3; PERRL, no facial palsy; no dysarthria; moves extremities. Skin- warm & dry Principal Dx & Hospital Course #1 = Principal Diagnosis (1) Bilateral pulmonary embolism: Plan 52-year-old male with past med history significant for depression who is s/p left knee ligament repair 10 days prior admitted with bilateral pulmonary emboli. Bilateral pulmonary embolism Left lower extremity DVT History of left knee ligament repair on April 14, 2023. Also reports multiple long car rides. Presented with upper back pain. CTA chest noted acute PE in the left segmental and right subsegmental and segmental branch. Lower extremity Doppler shows thrombus in one of the 2 posterior tibial veins extending to proximal to mid vein. Echocardiogram shows EF of 60 to 65%; no findings suggestive of pulmonary hypertension. EKG personally reviewed; sinus rhythm with no ST or T wave changes. Treated with therapeutic Lovenox and discharged with Eliquis 10 mg twice daily for 7 days, then 5 mg twice daily. Will need anticoagulation for 3 to 6 months Consider screening colonoscopy. PCP followup Back Pain CT thoracic spine was ordered due to severe back pain reported by the patient. Reported to have mild loss of height of superior endplate of T4 likely due to oral compression fracture. Patient is asymptomatic. The back pain is likely due to pulmonary infarction of right lower lobe. Pain control with oxycodone and muscle relaxant PT/OT PCP follow up Depression On duloxetine, continue Discharge Exam General: Alert, oriented. No acute distress Skin: No noted rashes or bruises Psych: Appropriate mood and affect Neuro: Had no difficulty moving or changing positions in the bed HEENT: NC/AT CV: RRR Resp: Breath sounds decreased bilaterally, no increased effort of breathing. Abdomen: Soft, nontender, nondistended. Extremities: No edema in lower extremities bilaterally. Updated Medication List Medication Instructions Recorded Confirmed Type diflunisal 500 mg tablet 500 mg PO BID PRN Pain 02/28/18 04/25/23 History acetaminophen 500 mg tablet 1,000 mg PO DIRECTED PRN Pain 04/25/23 04/25/23 History (Tylenol Extra Strength) duloxetine 30 mg capsule,delayed 30 mg PO DAILY 04/25/23 04/25/23 History release apixaban 5 mg tablet (Eliquis) 5 mg PO BID #74 tabs 04/26/23 Rx oxycodone 5 mg tablet 5 mg PO Q6H PRN pain #10 tabs 04/27/23 Rx tizanidine 4 mg tablet 2 mg (1/2 x 4 mg) PO TID PRN 04/27/23 Rx muscle spasticity #30 tabs Hospital Stay Data Consultations 04/25/23 04:11 ED Decision to Admit Stat Diagnostic Imagining Performed 04/25/23 01:44 CT angio chest PE protocol Stat 04/25/23 10:07 US venous duplex leg [US venous doppler LE BI] Routine 04/26/23 10:07 CT thoracic spine w con Urgent Chest CTA 04/25/23 01:44 CR Exam(s): CTA CHEST IV Amt: 118 ml opti 320 EXAM: CT Angiography Chest With Intravenous Contrast CLINICAL HISTORY: Reason for exam: Dyspnea. TECHNIQUE: Axial computed tomographic angiography images of the chest with intravenous contrast. Automated exposure control was utilized for the study. A dose lowering technique was utilized adhering to the principles of ALARA. MIP reconstructed images were created and reviewed. COMPARISON: No relevant prior studies available. FINDINGS: Pulmonary arteries: Acute pulmonary emboli in the left segmental and segmental branches as well as right subsegmental branches. Positive for right heart strain. Aorta: No acute findings. No thoracic aortic aneurysm. Lungs: Unremarkable. No mass. No consolidation. Pleural space: Unremarkable. No significant effusion. No pneumothorax. Heart: Cardiomegaly. No significant pericardial effusion. No evidence of RV dysfunction. Bones/joints: Degenerative changes of the spine. No acute fracture. No dislocation. Soft tissues: Unremarkable. Lymph nodes: Unremarkable. No enlarged lymph nodes. IMPRESSION: Acute pulmonary emboli in the left segmental and segmental branches as well as right subsegmental branches. Positive for right heart strain. Communications: Call Doctor Other Electronically signed by: Rafael Florez MD 04/25/23 03:31 AM Venous Doppler Study 04/25/23 10:07 US venous doppler LE BI CLINICAL HISTORY: Rule out DVT TECHNIQUE: Bilateral lower extremity real-time compression venous ultrasound with Color Doppler imaging. Utilizing real-time ultrasonic imaging multiple real time high-resolution ultrasonic images with compression and noncompression maneuvers of the deep venous system in addition to color doppler imaging were performed from the common femoral vein through the proximal calf veins. COMPARISON: None available at the time of this dictation. FINDINGS/IMPRESSION: Newly occlusive thrombus is seen in one of 2 posterior tibial veins extending from the proximal to mid vein. Mcclain's cyst incidentally seen. ACT 112: Negative or not required by law. Electronically signed by: Pete Barclay M.D. 04/25/2023 1:[address] 04/26/23 10:[address] WITH CONTRAST CLINICAL HISTORY: Severe back pain. COMPARISON STUDY: Chest CT April 25, 2023. TECHNIQUE: Axial images of the thoracic spine were obtained following intravenous injection of 90 cc of Optiray 320 IV. Sagittal and coronal reconstructions were viewed. Automated exposure control was utilized for the study. A dose lowering technique was utilized adhering to the principles of ALARA. FINDINGS: Alignment of the thoracic spine is anatomic. There is mild loss of height of the superior endplate of T4. This is probably chronic. No acute f ractures are present. There are multiple Schmorl's nodes within the thoracic spine. No suspicious osseous lesions are present. Mild multilevel endplate osteophytosis and facet arthrosis is present. Trace bilateral pleural effusions have developed since CT of April 25, 2023. Multiple bilateral pulmonary emboli are again noted. These are better depicted on that exam. Right lower lobe groundglass opacity is noted. This favors a pulmonary infarct. IMPRESSION: 1. Mild loss of height of the superior endplate of T4. This favors an old mild compression fracture. No acute thoracic spine fractures. 2. Mild multilevel degenerative changes within the thoracic spine. 3. Multiple bilateral pulmonary emboli, as shown on chest CT of April 25, 2023. Interval development of trace bilateral pleural effusions. Subpleural right lower lobe opacity favors a pulmonary infarct which could potentially result in back pain. ACT 112: Negative or not required by law. Electronically signed by: aJx Lynch M.D. 04/26/2023 11:30 AM Pending Results Patient Have Any Pending Studies at Discharge: No Discharge Instructions Given to Patient (Per Discharging Provider) Mr. Griffiths, Cesar were admitted as you were found to have blood clots bilaterally in your lungs. We treated you with a blood thinner and we are discharging you home with the prescription for Eliquis to take at home. You stated today that your pharmacy has the prescription for you and it will not cost you much. Please take 10mg (2 pills) of the Eliquis tonight when you get home. Continue taking the 10mg dose TWICE A DAY FOR SEVEN DAYS or a total of 14 doses. Then after you complete the 10mg dose regimen, continue taking the Eliquis at 5mg twice a day for a total of 3-6 months. Your primary care provider will help with determining when you should stop taking it. For the associated pain, we are discharging you with a muscle relaxer and oxycodone to help. Please keep followup with your primary care provider for further refills and/or further evaluation as well. Continue with your home Cymbalta and Tylenol which also both help with pain. Please continue with Physical Therapy. It was a pleasure taking care of you while you were here. Total Time Total Time Spent Total Time Spent (In Minutes): > 30 minutes
--- NOTE | 2023-04-27 15:24 | Electrocardiogram Report ---
Test Reason : Blood Pressure : / mmHG Vent. Rate : 072 BPM Atrial Rate : 072 BPM P-R Int : 134 ms QRS Dur : 092 ms QT Int : 384 ms P-R-T Axes : 047 015 039 degrees QTc Int : 420 ms Normal sinus rhythm Normal ECG When compared with ECG of 26-APR-2023 11:28, No significant change was found Confirmed by Jerson Mota ([id number]) on 04/27/2023 3:24:20 PM Referred By: REFERRED SELF Confirmed By:Williams Mota
== END 2023-04-27 13:55 | disposition home or self-care (01) | DRG 176 ==
LOC: ED 00:48 → 2S 05:54 → SUATTDRO 05:54 → 2S 07:48
DX: I82.442 Acute embolism and thrombosis of left tibial vein; I26.94 Multiple subsegmental thrombotic pulmonary emboli without acute cor pulmonale; Z98.890 Other specified postprocedural states; F32.A Depression, unspecified